=== PATIENT | male | born 1985 | race Caucasian/White ===

== ENCOUNTER 2019-04-12 18:49 | Emergency (ER) | payer OTHER ==
[2019-04-12] MEDS ORDERED: DIPHENHYDRAMINE HCL 50 MG/ML VIAL IV ONE (19:21)
[2019-04-12] MEDS ORDERED: KETOROLAC TROMETHAMINE INJ/PF 30 MG/1 ML SDV IV ONE (19:21)
[2019-04-12] MEDS ORDERED: NORMAL SALINE 1000 ML 1,000 ML IV ONE (19:21)
[2019-04-12] MEDS ORDERED: PROCHLORPERAZINE EDISYLATE INJ 10 MG/2 ML VIAL IV ONE (19:21)
--- NOTE | 2019-04-12 19:23 | ER Document Report ---
ED Medical Screen (RME) - General Stated Complaint: HEADACHE Mode of Arrival: Ambulatory Information source: Patient Notes: Patient presents complaining of left-sided headache pain for the past 4 days. Patient states headache pain started gradually and continue to worsen. Patient denies any fever nausea or vomiting. Patient does report light sensitivity. Patient does report having headaches similar to this in the past. No significant medical history. I have greeted and performed a rapid initial assessment of this patient. A comprehensive ED assessment and evaluation of the patient, analysis of test results and completion of the medical decision making process will be conducted by additional ED providers. Physical Exam - Vital signs Vitals: Temp Pulse Resp BP Pulse Ox 98.7 F 94 18 153/95 H 98 04/12/19 19:04 04/12/19 19:04 04/12/19 19:04 04/12/19 19:04 04/12/19 19:04 - Neurological Neuro grossly intact: Yes Cognition: Normal Haile Coma Scale Eye Opening: Spontaneous Haile Coma Scale Verbal: Oriented Tyrone Coma Scale Motor: Obeys Commands Tyrone Coma Scale Total: 15 Speech: Normal Course - Vital Signs Vital signs: Temp Pulse Resp BP Pulse Ox 98.7 F 94 18 153/95 H 98 04/12/19 19:04 04/12/19 19:04 04/12/19 19:04 04/12/19 19:04 04/12/19 19:04
--- NOTE | 2019-04-12 22:47 | ER Document Report ---
ED Headache - General Chief Complaint: Headache Stated Complaint: HEADACHE Time Seen by Provider: 04/12/19 22:34 [facility] [[facility] - Follow up as needed Mode of Arrival: Ambulatory Notes: RME NOTE: Patient presents complaining of left-sided headache pain for the past 4 days. Patient states headache pain started gradually and continue to worsen. Patient denies any fever nausea or vomiting. Patient does report light sensitivity. Patient does report having headaches similar to this in the past. No significant medical history. MY HPI: Upon my assessment patient is sleeping, easily arousable to verbal stimuli. Patient voices he no longer has a headache. Patient voices his headache was on the left side of his head. States is been intermittent for the last 4 days. States he has been taking [id number] Tylenol which helps "a little" states he has followed up with the [place] [facility] for continued headaches. States he has not been there" a while." Patient's denying any fevers, URI symptoms. He is denying any body aches, rashes. Patient's denying any nausea, vomiting, abdominal pain. Did initially admit to photophobia but is denying any at this time. TRAVEL OUTSIDE OF THE [place] IN LAST 30 DAYS: No - Related Data Allergies/Adverse Reactions: gabapentin Allergy (Mild, Verified 04/12/19 20:22) Past Medical History - General Information source: Patient - Social History Smoking Status: Current Every Day Smoker Family History: Reviewed & Not Pertinent Patient has suicidal ideation: No Patient has homicidal ideation: No Review of Systems - Review of Systems Constitutional: denies: Fever EENT: See HPI Cardiovascular: No symptoms reported Respiratory: No symptoms reported Gastrointestinal: No symptoms reported Genitourinary: No symptoms reported Male Genitourinary: No symptoms reported Musculoskeletal: No symptoms reported Skin: No symptoms reported Hematologic/Lymphatic: No symptoms reported Neurological/Psychological: See HPI Physical Exam - Vital signs Vitals: Temp Pulse Resp BP Pulse Ox 98.7 F 94 18 153/95 H 98 04/12/19 19:04 04/12/19 19:04 04/12/19 19:04 04/12/19 19:04 04/12/19 19:04 - Notes Notes: GENERAL: Alert, interacts well. No acute distress. GCS 15. HEAD: Normocephalic, atraumatic. EYES: Pupils equal, round, and reactive to light. Extraocular movements intact. No photophobia noted on my exam. ENT: Oral mucosa moist, tongue midline. NECK: Full range of motion. Supple. Trachea midline. No nuchal rigidity noted. LUNGS: Clear to auscultation bilaterally, no wheezes, rales, or rhonchi. No respiratory distress. HEART: Regular rate and rhythm. No murmur ABDOMEN: Soft, non-tender. Non-distended. Bowel sounds present in all 4 quadrants. EXTREMITIES: Moves all 4 extremities spontaneously. No edema, normal radial and dorsalis pedis pulses bilaterally. No cyanosis. 5 out of 5 strength noted all 4 extremities. BACK: no cervical, thoracic, lumbar midline tenderness. No saddle anesthesia, normal distal neurovascular exam. NEUROLOGICAL: Alert and oriented x3. Normal speech. cranial nerves II through XII grossly intact PSYCH: Normal affect, normal mood. SKIN: Warm, dry, normal turgor. No rashes or lesions noted. Course - Re-evaluation Re-evalutation: 04/12/19 22:44 Patient has been treated with a migraine cocktail by [facility] provider. Upon my assessment patient voices he no longer has a headache. His neurological exam is normal. He is denying any fevers, rash, body aches. Patient has no nuchal rigidity on exam. I discussed with him close follow-up at the [place] [facility] with close return precautions. Patient stable for discharge. - Vital Signs Vital signs: Temp Pulse Resp BP Pulse Ox 98.7 F 94 18 153/95 H 98 04/12/19 19:04 04/12/19 19:04 04/12/19 19:04 04/12/19 19:04 04/12/19 19:04 Discharge - Discharge Clinical Impression: Migraine Qualifiers: Migraine type: other Status migrainosus presence: without status migrainosus Intractability: not intractable Qualified Code(s): G43.809 - Other migraine, not intractable, without status migrainosus Condition: Stable Disposition: HOME, SELF-CARE Instructions: Antinausea Medication ([facility]), Headache ([facility]), Reglan ([facility]) Additional Instructions: As we discussed you have been seen and treated in the emergency department for a migraine. Please make sure he stay well-hydrated and follow-up with your primary care provider in the next 12 to 24 hours. Please also immediately return to the emergency room should you have any concerns. Prescriptions: Metoclopramide HCl [Reglan 10 mg Tablet] 1 tab PO ASDIR PRN #20 tablet PRN Reason: Forms: Return to Work, Elevated Blood Pressure Referrals: [facility] [[facility]] - Follow up as needed
[2019-04-12 23:00] VITALS: BP 150/92
== END 2019-04-12 22:57 | disposition home or self-care (01) ==
LOC: ER 18:49
DX: G43.909 Migraine, unspecified, not intractable, without status migrainosus (principal); F17.200 Nicotine dependence, unspecified, uncomplicated; Z88.6 Allergy status to analgesic agent
CPT/HCPCS: 99283; 96361; 96374; 96375; J1200; J1885; J0780; J7030

== ENCOUNTER 2019-10-22 12:39 | Emergency (ER) | payer OTHER ==
[2019-10-22 12:44] VITALS: BP 145/92
--- NOTE | 2019-10-22 12:50 | ER Document Report ---
HPI - HPI Patient complains to provider of: Wrist pain Time Seen by Provider: 10/22/19 12:46 Onset: Last week Quality of pain: Achy Context: 33-year-old male presents with right wrist pain. Reports he was helping a fri end move a heavy table saw and his friend dropped 1 side and pinned his wrist. Patient reports pain since that time. Patient does have full range of motion. He is right-handed. Denies past medical history of injury to the wrist. No other complaints such as fever vomiting diarrhea. Clines pain medication. Associated Symptoms: None Exacerbated by: Movement Relieved by: Denies Similar symptoms previously: No Recently seen / treated by doctor: No - REPRODUCTIVE Reproductive: DENIES: : Past Medical History - General Information source: Patient - Social History Smoking Status: Current Every Day Smoker Cigarette use (# per day): Yes Frequency of alcohol use: None Drug Abuse: None Family History: Reviewed & Not Pertinent Patient has suicidal ideation: No Patient has homicidal ideation: No - Medical History Medical History: Negative Surgical Hx: Negative Vertical Provider Document - CONSTITUTIONAL Agree With Documented VS: Yes Exam Limitations: No Limitations General Appearance: WD/WN, No Apparent Distress - INFECTION CONTROL TRAVEL OUTSIDE OF THE [place] IN LAST 30 DAYS: No - HEENT HEENT: Atraumatic, Normocephalic - NECK Neck: Supple - RESPIRATORY Respiratory: No Respiratory Distress - CARDIOVASCULAR Cardiovascular: Regular Rate - MUSCULOSKELETAL/EXTREMETIES Musculoskeletal/Extremeties: MAEW, FROM, Tender - Right wrist lateral tender to palpate no obvious deformity, no erythema no swelling no warmth, cap refill less than 2 seconds radial pulse +3 - NEURO Level of Consciousness: Awake, Alert, Appropriate Motor/Sensory: No Motor Deficit - DERM Integumentary: Warm, Dry Course - Re-evaluation Re-evalutation: 10/22/19 13:21 Patient presents with complaints of right wrist pain after getting his wrist injured while moving a big table saw last week. X-rays negative. Patient's offered an Rene wrap but reports he has a splint at home. He declines pain medication. [facility] as indicated. He verbalized understanding to all instructions. Wrist X-Ray 10/22/19 12:48 IMPRESSION: NEGATIVE STUDY OF THE RIGHT WRIST. NO RADIOGRAPHIC EVIDENCE OF ACUTE INJURY. - Vital Signs Vital signs: Temp Pulse Resp BP Pulse Ox 98.1 F 77 14 145/92 H 99 10/22/19 12:43 10/22/19 12:43 10/22/19 12:43 10/22/19 12:43 10/22/19 12:43 - Diagnostic Test Radiology reviewed: Image reviewed, Reports reviewed Discharge - Discharge Clinical Impression: Right wrist pain Condition: Stable Disposition: HOME, SELF-CARE Instructions: Use of [id number] Ibuprofen ([facility]), Ice & Elevation ([facility]) Additional Instructions: *You have been evaluated for right wrist pain *Use your wrist splint for comfort *Rest/Ice/Elevate your wrist *Follow up with orthopedics for continued pain *Take ibuprofen as indicated *Return to ED for worsening condition, changes, needs Referrals: [facility] [Primary [facility]] - Follow up in 1 week
--- NOTE | 2019-10-22 13:15 | RADIOLOGY REPORT (SQ) ---
EXAM DESCRIPTION: WRIST RIGHT 3 VIEWS IMAGES COMPLETED DATE/TIME: 10/22/2019 1:07 pm REASON FOR STUDY: wrist pain, injury COMPARISON: None. NUMBER OF VIEWS: Three views. TECHNIQUE: AP, lateral, and oblique radiographic images acquired of the right wrist. LIMITATIONS: None. FINDINGS: MINERALIZATION: Normal. BONES: No acute fracture or dislocation. No worrisome bone lesions. Normal alignment. SOFT TISSUES: No soft tissue swelling. No foreign body. OTHER: No other significant finding. IMPRESSION: NEGATIVE STUDY OF THE RIGHT WRIST. NO RADIOGRAPHIC EVIDENCE OF ACUTE INJURY. TECHNICAL DOCUMENTATION: JOB ID: [id number] 2010 [employer]- All Rights Reserved Reading location - IP/workstation name: [email or web address]
== END 2019-10-22 13:22 | disposition home or self-care (01) ==
LOC: ER 12:39
DX: M25.531 Pain in right wrist (principal); F17.210 Nicotine dependence, cigarettes, uncomplicated
CPT/HCPCS: 99283